=== PATIENT | male | born 1985 | race African-American/Black ===

== ENCOUNTER 2016-09-09 18:39 | Emergency (ER) | payer OTHER ==
[2016-09-09] MEDS ORDERED: Diphtheria,Pertussis(Acell),Tetanus Vaccine 0.5 ML Syringe IM ONE (19:44)
[2016-09-09] MEDS ORDERED: Lidocaine 1% 20 ML MDV INJECT ONE (19:49)
--- NOTE | 2016-09-09 19:50 | EDM.PDOC ---
ED HPI GENERAL MEDICAL PROBLEM - General Chief Complaint: Laceration Stated Complaint: PT HURT RT INDEX FINGER Time Seen by Provider: 09/09/16 19:49 Source of Information: Reports: Patient History Limitations: Reports: No Limitations - History of Present Illness INITIAL COMMENTS - FREE TEXT/NARRATIVE: HISTORY AND PHYSICAL: History of present illness: [Patient comes to the emergency room complaining of a laceration to his right index finger. 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 Complains of mild pain and moderate bleeding at the time. He has no numbness or tingling and has full movement of his finger. No other complaints or concerns.. He is overdue for a tetanus shot.] Review of systems: As per history of present illness and below otherwise all systems reviewed and negative. Past medical history: As per history of present illness and as reviewed below otherwise noncontributory. Surgical history: As per history of present illness and as reviewed below otherwise noncontributory. Social history: No reported history of drug or alcohol abuse. Family history: As per history of present illness and as reviewed below otherwise noncontributory. Physical exam: HEENT: Atraumatic, normocephalic. Extremities: 1.5cm superficial laceration to R index finger at PIP joint. Wound is cleansed and closed with steri-strips without difficulty.no other injuries. Neurovascular unremarkable. Neuro: Awake, alert, oriented. Diagnostics: [Right index finger laceration] Plan: [See procedure note. Patient does not want to have sutures placed. Wound is closed with Steri-Strips without difficulty. Wound care instructions are given. Return to ER as needed as discussed. She is in agreement with today's plan.] Definitive disposition and diagnosis as appropriate pending reevaluation and review of above. Right 2-Index finger Pain Score (Numeric/FACES): 1 - Related Data Allergies Allergy/AdvReac Type Severity Reaction Status Date / Time No Known Allergies Allergy Verified 09/09/16 19:22 Home Meds: Home Meds . [No Known Home Meds] 09/09/16 [History] Past Medical History - Past Health History Medical/Surgical History: Denies Medical/Surgical History - Infectious Disease History Infectious Disease History: Reports: Chicken Pox, Mumps Social & Family History - Family History Family Medical History: Noncontributory - Tobacco Use Smoking Status *Q: Never Smoker Second Hand Smoke Exposure: No - Caffeine Use Caffeine Use: Reports: None - Recreational Drug Use Recreational Drug Use: Yes Recreational Drug Type: Reports: Marijuana/Hashish Recreational Drug Last Use: Dec 2015 ED ROS GENERAL - Review of Systems Review Of Systems: ROS reveals no pertinent complaints other than HPI. ED EXAM, SKIN/RASH Exam: See Below ED SKIN PROCEDURES - Laceration/Wound Repair Right Proximal Dorsal Finger Lac/Wound length In cm: 1.5 Appearance: Superficial, Linear, Clean Distal NVT: Neuro & Vascular Intact Skin Prep: Chlorhexidine (Hibiciens), Saline Exploration/Debridement/Repair: Wound Explored, In a Bloodless Field Closed with: Steri-Strips Sterile Dressing Applied: Nurse Tetanus Status Addressed: Yes Complications: No Course - Vital Signs Last Recorded V/S: Last Vital Signs Temp 98.3 F 09/09/16 19:15 Pulse 68 09/09/16 19:15 Resp 18 09/09/16 19:15 BP 120/66 09/09/16 19:15 Pulse Ox 96 09/09/16 19:15 - Orders/Labs/Meds Orders: Active Orders 24 hr Category Date Time Status Vaccines to be Administered [RC] PER UNIT ROUTINE Care 09/09/16 19:44 Active Meds: Medications Discontinued Medications Generic Name Dose Route Start Last Admin Trade Name Jolanta PRN Reason Stop Dose Admin Diphtheria/Tetanus/Acell Pertussis 0.5 ml 09/09/16 19:44 09/09/16 19:50 Adacel IM 09/09/16 19:45 0.5 ml .ONCE ONE Administration Lidocaine HCl 20 ml 09/09/16 19:49 Xylocaine 1% INJECT 09/09/16 19:50 ONETIME ONE Departure - Departure Time of Disposition: 20:20 Disposition: Home, Self-Care 01 Condition: Good Clinical Impression: Superficial laceration - Discharge Information Forms: ED Department Discharge Additional Instructions: The following information is given to patients seen in the emergency department who are being discharged to home. This information is to outline your options for follow-up care. We provide all patients seen in our emergency department with a follow-up referral. The need for follow-up, as well as the timing and circumstances, are variable depending upon the specifics of your emergency department visit. If you don't have a primary care physician on staff, we will provide you with a referral. We always advise you to contact your personal physician following an emergency department visit to inform them of the circumstance of the visit and for follow-up with them and/or the need for any referrals to a consulting specialist. The emergency department will also refer you to a specialist when appropriate. This referral assures that you have the opportunity for follow-up care with a specialist. All of these measure are taken in an effort to provide you with optimal care, which includes your follow-up. Under all circumstances we always encourage you to contact your private physician who remains a resource for coordinating your care. When calling for follow-up care, please make the office aware that this follow-up is from your recent emergency room visit. If for any reason you are refused follow-up, please contact the [facility] emergency department at and asked to speak to the emergency department charge nurse. [facility] [address] [place] [address] Follow-up with your primary care at the clinic listed above in 2-3 days. Tylenol or Motrin as needed for discomfort. Return to ER as needed as discussed. - My Orders Last 24 Hours: My Active Orders 09/09/16 19:44 Vaccines to be Administered [RC] PER UNIT ROUTINE - Assessment/Plan Last 24 Hours: My Active Orders 09/09/16 19:44 Vaccines to be Administered [RC] PER UNIT ROUTINE
[2016-09-09 20:42] VITALS: BP 126/81
== END 2016-09-09 20:40 | disposition home or self-care (01) ==
LOC: MW.ED 18:39
DX: S61.210A Laceration without foreign body of right index finger without damage to nail, initial encounter (principal); Z23 Encounter for immunization; W26.8XXA Contact with other sharp object(s), not elsewhere classified, initial encounter
CPT/HCPCS: 90471; 90715; 99282; 99282-25

== ENCOUNTER 2021-06-11 18:20 | Emergency (ER) | payer OTHER, BC ==
[2021-06-11] MEDS ORDERED: Lidocaine 1% with EPINEPHrine 1:100,000 10 ML MDV INJECT ONE (18:38)
[2021-06-11] MEDS ORDERED: Diphtheria,Pertussis(Acell),Tetanus Vaccine 0.5 ML Syringe IM ONE (18:43)
[2021-06-11 19:59] VITALS: BP 145/85; PULSE 84
== END 2021-06-11 19:59 | disposition home or self-care (01) ==
LOC: MW.ED 18:20
DX: S01.81XA Laceration without foreign body of other part of head, initial encounter (principal); Z23 Encounter for immunization; W25.XXXA Contact with sharp glass, initial encounter
CPT/HCPCS: 12011; 90471; 90715; 99283-25

== ENCOUNTER 2021-06-13 12:12 | Emergency (ER) | payer OTHER, BC ==
[2021-06-13] MEDS ORDERED: Sodium Chloride 0.9% 2.5 ML Syringe FLUSH PRN (13:11)
[2021-06-13] MEDS ORDERED: Sodium Chloride 0.9% 10 ML Syringe FLUSH PRN (13:11)
[2021-06-13] MEDS ORDERED: Sodium Chloride 0.9% 1,000 ML IV ONE (13:11)
[2021-06-13 14:44] LABS: BLOOD UREA NITROGEN,BUN 15 mg/dL (7.0-18.0); CARBON DIOXIDE,CO2 28.2 mmol/L (21.0-32.0); CHLORIDE,CL 104 mmol/L (98-107); GLUCOSE RANDOM 90 mg/dL (74-106); SODIUM,NA 142 mmol/L (136-148)
[2021-06-13 15:55] VITALS: BP 132/78; PULSE 58
== END 2021-06-13 15:52 | disposition home or self-care (01) ==
LOC: MW.ED 12:12
DX: S09.90XA Unspecified injury of head, initial encounter (principal); R42 Dizziness and giddiness; Z20.822 Contact with and (suspected) exposure to COVID-19; W22.8XXA Striking against or struck by other objects, initial encounter; Y99.0 Civilian activity done for income or pay
CPT/HCPCS: 36415; 70450; 71045; 80053; 81003; 84443; 84484; 85025; 93005; 99284; J3490; J7030

== ENCOUNTER 2022-03-18 20:05 | Emergency (ER) | payer BC, OTHER ==
[2022-03-18] MEDS ORDERED: methylPREDNISolone Sodium Succinate 125 MG/2 ML SDV IVPUSH ONE (20:08)
[2022-03-18] MEDS ORDERED: Famotidine 20 MG/2 ML SDV IVPUSH ONE (20:08)
[2022-03-18] MEDS ORDERED: diphenhydrAMINE 50 MG/ML SDV IVPUSH ONE (20:08)
[2022-03-18 20:19] VITALS: PULSE 61
[2022-03-18 22:31] VITALS: BP 115/57
== END 2022-03-18 22:25 | disposition home or self-care (01) ==
LOC: MW.ED 20:05
DX: T78.40XA Allergy, unspecified, initial encounter (principal)
CPT/HCPCS: 96374; 96375; 99283; J1200; J2930; J3490; 99284

== ENCOUNTER 2023-06-20 20:50 | Emergency (ER) | payer BC ==
[2023-06-20] MEDS: Sodium Chloride 0.9% 2.5 ML Syringe FLUSH PRN (22:00)
[2023-06-20] MEDS: Sodium Chloride 0.9% 10 ML Syringe FLUSH PRN (22:00)
[2023-06-20] MEDS: Sodium Chloride 0.9% 1,000 ML IV ONE (22:00)
[2023-06-20 22:20] LABS: BASOPHILS ABSOLUTE AUTO 0.01 K/uL (0.00-0.20); BASOPHILS PERCENT AUTO 0.2 % (0.0-1.0); EOSINOPHILS ABSOLUTE AUTO 0.15 K/uL (0.00-0.45); EOSINOPHILS PERCENT AUTO 2.4 % (0.0-6.0); HEMATOCRIT 45.7 % (42.0-52.0); HEMOGLOBIN 15.3 g/dL (14.0-18.0); IMMATURE GRAN ABSOLUTE AUTO 0.01 K/uL (0.00-0.05); IMMATURE GRAN PERCENT AUTO 0.2 % (0.0-0.4); LYMPHOCYTES ABSOLUTE AUTO 3.13 K/uL (1.00-4.80); LYMPHOCYTES PERCENT AUTO 49.8 % (24.0-44.0); MEAN CORPUSCULAR HEMOGLOBIN 28.9 pg (28.0-32.0); MEAN CORPUSCULAR HGB CONC 33.5 g/dL (32.0-36.0); MEAN CORPUSCULAR VOLUME 86.4 fL (83.0-99.0); MEAN PLATELET VOLUME 9.9 fL (9.4-12.4); MONOCYTES ABSOLUTE AUTO 0.49 K/uL (0.00-0.80); MONOCYTES PERCENT AUTO 7.8 % (0.0-8.0); NEUTROPHILS ABSOLUTE AUTO 2.49 K/uL (1.80-7.70); NEUTROPHILS PERCENT AUTO 39.6 % (41.0-71.0); PLATELET COUNT,PLT 233 K/uL (150-400); RED BLOOD CELL COUNT 5.29 M/uL (4.52-5.90); WHITE BLOOD CELL COUNT,WBC 6.28 K/uL (3.9-11.3)
[2023-06-20 23:37] LABS: A/G RATIO 0.9 (0.9-1.6); ALBUMIN 3.4 g/dL (3.4-5.0); BILIRUBIN TOTAL 0.3 mg/dL (0.2-1.0); CALCIUM 8.5 mg/dL (8.5-10.1); CARBON DIOXIDE,CO2 28.7 mmol/L (21.0-32.0); CREATININE 1.1 mg/dL (0.8-1.3); EST CRCL DRUG DOSING (CG) 108.83 mL/min; MAGNESIUM 1.8 mg/dL (1.8-2.4); PROTEIN TOTAL,TP 7.3 g/dL (6.4-8.2)
[2023-06-21 00:37] VITALS: BP 128/72; PULSE 60
== END 2023-06-21 00:36 | disposition home or self-care (01) ==
LOC: MW.ED 20:50
DX: R42 Dizziness and giddiness (principal); Z79.899 Other long term (current) drug therapy; Z75.8 Other problems related to medical facilities and other health care
CPT/HCPCS: 36415; 70450; 80053; 82947; 83735; 84484; 85025; 93005; 99284; J3490; J7030; 93010; 99283